=== PATIENT | female | born 1955 | race Two or more races ===

== ENCOUNTER 2019-07-05 12:59 | Emergency (ER) | payer OTHER ==
[~2019-07-05] VITALS: Ht 160 cm; Wt 69.4 kg
--- NOTE | 2019-07-05 12:59 | NUR ---
Placed in room 08 . Placed on campus monitor, blood pressure machine and pulse oximeter. To gown for exam. Side rails up.
[2019-07-05 13:00] VITALS: BP_SYST 189
--- NOTE | 2019-07-05 13:00 | NUR ---
ER Dr. Cole at bedside examining patient.
--- NOTE | 2019-07-05 13:01 | NUR ---
Pt AAOx4 presents to ED via wheelchair c/o palpitations while in PMD's office prior to arrival. Pt reports she has history of SVT and HTN. Pt denies n/v/d. Pt reports feeling anxiety and chest discomofort. Skin pink dry and warm, breathing even and unlabored. No other injuries/complaints per pt/noted. Will continue to monitor.
--- NOTE | 2019-07-05 13:05 | NUR ---
Adenosine 12mg IVRP administered. Pt tolerated well. No adverse reactions noted. HR decreased to 112. Dr. Cole at bedside. Will continue to monitor.
[2019-07-05] MEDS ORDERED: LORazepam 2 MG/ML VIAL IVP ONE (13:15)
[2019-07-05] MEDS ORDERED: ADENOSINE 6MG/2ML VIAL IVP ONE (13:15)
[2019-07-05] MEDS ORDERED: ADENOSINE 6MG/2ML VIAL ONE (13:24)
--- NOTE | 2019-07-05 13:40 | NUR ---
Assumed care of patient.
[2019-07-05 13:44] LABS: BASOPHILS % (AUTO) 0.8 % (0.0-2.0); EOSINOPHILS # (AUTO) 0.1 K/uL (0.0-0.4); EOSINOPHILS % (AUTO) 2.3 % (0.0-4.0); HEMATOCRIT 39.1 % (36-48); HEMOGLOBIN 12.8 g/dL (12.0-16.0); LYMPHOCYTES # (AUTO) 1.3 K/uL (1.0-5.5); LYMPHOCYTES % (AUTO) 29.9 % (20.5-51.5); MEAN CORPUSCULAR HEMOGLOBIN 27 pg (27-31); MEAN CORPUSCULAR HGB CONC 33 % (32-36); MEAN CORPUSCULAR VOLUME 81 fL (79.0-98.0); MONOCYTES # (AUTO) 0.3 K/uL (0.0-1.0); MONOCYTES % (AUTO) 6.1 % (1.7-9.3); NEUTROPHILS # (AUTO) 2.5 K/uL (1.8-7.7); NEUTROPHILS % (AUTO) 60.9 % (40.0-70.0); PLATELET COUNT (AUTO) 170 K/uL (130-430); RED BLOOD CELL COUNT(AUTO) 4.81 MIL/uL (4.2-6.2); WHITE BLOOD COUNT (AUTO) 4.2 K/uL (4.8-10.8)
--- NOTE | 2019-07-05 13:50 | NUR ---
Patient assisted to restroom, patient ambulatory with assistance.
[2019-07-05 14:01] LABS: CALCIUM 8.7 mg/dL (8.4-11.0); CREATININE 0.85 mg/dL (0.55-1.30); POTASSIUM 3.9 mmol/L (3.5-5.1)
[2019-07-05 14:06] LABS: ALBUMIN 3.8 g/dL (3.4-4.8); TOTAL BILIRUBIN 0.3 mg/dL (0.0-1.0)
--- NOTE | 2019-07-05 14:39 | NUR ---
Patient given written and verbal discharge instructions and verbalizes understanding. ER MD discussed with patient the results and treatment provided. Patient in stable condition. ID arm band removed. IV catheter removed intact and dressing applied, no active bleeding. Rx of Metropolol given. Patient educated on pain management and to follow up with PMD. Pain Scale 0/10. Opportunity for questions provided and answered. Medication side effect fact sheet provided.
[2019-07-05 14:40] VITALS: BP_SYST 142
== END 2019-07-05 14:39 | disposition home or self-care (01) ==
LOC: SED 12:59
DX: I47.1 Supraventricular tachycardia (principal); I10 Essential (primary) hypertension; G43.909 Migraine, unspecified, not intractable, without status migrainosus; Z88.0 Allergy status to penicillin
CPT/HCPCS: 36415; 71045; 80053; 82550; 83880; 84484; 85025; 93005; 96374; 96375; 99284; J0153; J2060